=== PATIENT | male | born 1950 | race Caucasian/White ===

== ENCOUNTER 2019-09-30 06:12 | Day surgery (SDC) | payer MEDICARE, OTHER, SELFPAY ==
[2019-09-30] VITALS (9 sets, daily range): BP systolic 106–159; BP diastolic 63–106; PULSE 41–73; RESP 11–92; TEMP 36.1–36.2; O2SAT 20–97; BMI 38.7
--- NOTE | 2019-09-30 | DI.RAD.S_ITS ---
PROCEDURE: XR ABDOMEN MIN 2V INDICATIONS: BILATERAL STENT PLACEMENT TECHNIQUE: 2 views of the abdomen were acquired. COMPARISON: None. FINDINGS: Spot fluoroscopic intraoperative images demonstrating partially visualized bilateral ureteral stents. Dictated by: Karl Harvey M.D. on 09/30/2019 at 9:33 Approved by: Karl Harvey M.D. on 09/30/2019 at 9:34
[2019-09-30] MEDS: LACTATED RINGERS 1,000 ML 42 ML IV (07:23)
--- NOTE | 2019-09-30 07:38 | PM.PREOP ---
Pre-operative Note Interval Note History & Physical reviewed/Exam performed by Physician: Yes Changes to H&P: No H&P completed within 30 days and has changed as indicated here:: There are no changes to the history and physical examination the scanned on file.
[2019-09-30] MEDS: CEFAZOLIN VIAL 3 GM in SODIUM CHLORIDE 0.9% 100 ML 200 ML IV (07:40)
--- NOTE | 2019-09-30 08:08 | SUR.OPER ---
Lithotomy on padded OR bed, head on pillow, arms secured on padded arm boards at <90 degrees abduction. Legs secured in padded yellow fins stirrups.
--- NOTE | 2019-09-30 08:30 | SUR.OPER ---
See Laser tech invoice for fiber size and laser settings/duration record
--- NOTE | 2019-09-30 09:23 | PM.OP.1 ---
Operative Date/Time/Diagnoses Date of procedure: 09/30/19 Time of procedure: 09:23 Pre-op diagnosis: 1. Bilateral obstructing distal ureteral calculi. 2. Bilateral renal colic. 3. Recurring urinary tract infection. Post-op diagnosis: same Procedure & Clinicians Procedure: 1. Cystoscopy and left ureteroscopic laser lithotripsy. 2. Cystoscopy and placement bilateral ureteral stents (6 [place] by 28 cm on left. Five [place] by 28 cm on right.). Same procedure as scheduled: Yes Indications: 1. Obstructing bilateral distal ureteral calculi. 2. Bilateral renal colic. 3. Recurring urinary tract infections. Surgeon: Parveen Plummer Click Yes if Unassisted: Yes Anesthesia Type: General Operative Notes Findings: Urethra-normal. External sphincter coapted. The prostate 5+ cm length with moderately obstructing lateral lobes and markedly elevated median lobe and market intravesical protrusion of median lobe. Bladder-1 to 2+ trabeculation normal orifices bilaterally there is a shallow wide-mouth right Hutch diverticulum. There are multiple areas of cystitis cystica. There is marked good intravesical protrusion of prostate median lobe. A Cristian morphology calculus was encountered in the left distal ureter and was subsequently fragmented using the laser Lithotripter without incident. Closure Type: not applicable Specimen(s): none sent Applied: other (1. 6 x 28 cm left ureteral stent. 2. 5 [place] by 28 cm right ureteral stent. ) Estimated Blood Loss (mL): 0 Blood products transfused: none Tourniquet time (min): 0 Procedure in detail: The patient was positioned supine and was administered general anesthesia. He was then repositioned in semi lithotomy in the lower abdomen genitalia and groin were prepped and draped in sterile fashion. The 22 [place] panendoscope was then passed into the lower urinary tract with the findings as described above. A 0.35 guidewire was then advanced into the left collecting system under direct and fluoroscopic guidance. A 4 cm 15 [place] balloon dilator was then advanced over the guidewire and was positioned across the left ureterovesical junction. The balloon was then inflated to 18 atmospheres and held in position for 5 minutes. The balloon was then deflated and backloaded off the guidewire. The avila endoscope was backloaded off the guidewire. The semi-rigid ureteroscope was then introduced in the lower urinary tract and into the left distal ureter with the findings as described above. A 273 micron laser fiber was selected. All operating room personnel and patient were fitted with laser safety eyewear. Lithotripsy was commenced with excellent eventual fragmentation of the calculus. The ureteral scope was then removed and the panendoscope was front loaded on the wire. A 6 [place] by 28 cm double-J ureteral stent was then selected. The stent was advanced over the guidewire under direct and fluoroscopic guidance. No retrieval line was left attached. Next the the same guidewire was utilized to access the right collecting system again under direct fluoroscopic guidance a 5 [place] by 28 cm double-J ureteral stent was then selected this was advanced over the guidewire again used under under direct and fluoroscopic guidance. No retrieval line was left attached. The bladder was then drained completely and all instrumentation was removed. The patient was then repositioned into a supine was awakened transferred to a gurney and transported to recovery in stable condition. Complications: none Post-operative Condition: stable Disposition: PACU Plan for aftercare: Discharge home.
== END 2019-09-30 09:50 | disposition home or self-care (01) ==
PROVIDERS: PCP Internal Medicine; Referring Provider Specialist; Visit Provider Specialist
PROC: (CPT 52356; principal; 2019-09-30 07:45)
DX: N20.1 Calculus of ureter (principal); N20.0 Calculus of kidney; N23 Unspecified renal colic; N30.80 Other cystitis without hematuria; N40.0 Benign prostatic hyperplasia without lower urinary tract symptoms
CPT/HCPCS: 52356; 74019; 76000; J0690; J2250; J2405; J2704; J3010

== ENCOUNTER 2019-10-14 06:31 | Day surgery (SDC) | payer MEDICARE, OTHER, SELFPAY ==
[2019-10-14] VITALS (8 sets, daily range): BP systolic 123–154; BP diastolic 73–87; PULSE 60–75; RESP 12–17; TEMP 36–37.2; O2SAT 95–99; BMI 36.9
[2019-10-14] MEDS: LACTATED RINGERS 1,000 ML 42 ML IV ×2 (07:00→09:54)
--- NOTE | 2019-10-14 07:12 | PM.PREOP ---
Pre-operative Note Interval Note History & Physical reviewed/Exam performed by Physician: Yes Changes to H&P: No H&P completed within 30 days and has changed as indicated here:: There are no changes to the history and physical examination scanned into file.
[2019-10-14] MEDS: CEFAZOLIN VIAL 3 GM in SODIUM CHLORIDE 0.9% 100 ML 200 ML IV (08:01)
--- NOTE | 2019-10-14 08:18 | SUR.OPER ---
Lithotomy on padded OR bed, head on pillow, arms secured on padded arm boards at <90 degrees abduction. Legs secured in padded yellow fins stirrups.
--- NOTE | 2019-10-14 08:35 | SUR.OPER ---
For Laser lithotripsy power settings, duration, and laser fiber type info.,refer to Holmium laser treatment record.
--- NOTE | 2019-10-14 09:03 | P.OP_ITS ---
Operative Date/Time/Diagnoses Date of procedure: 10/14/19 Time of procedure: 09:04 Pre-op diagnosis: 1. Obstructing 7 mm right distal ureteral calculus. 2. Bilateral retained ureteral stents. Post-op diagnosis: same Procedure & Clinicians Procedure: 1. Cystoscopy and left ureteral stent removal. 2. Cystoscopy and right ureteral stent removal. 3. Cystoscopy and right ureteroscopic laser lithotripsy. Same procedure as scheduled: No (Elected not to replace right ureteral stent post laser lithotripsy.) Indications: 1. Obstructing 7 mm right distal ureteral calculus. 2. Bilateral retained ureteral stents. Surgeon: Parveen Plummer Click Yes if Unassisted: Yes Anesthesia Type: General Operative Notes Findings: 1. Urethra-normal. 2. External sphincter-coapted. 3. Prostate-5 cm plus length with obstructing trilobar hyperplasia and large protruding intravesical median lobe. 4. Bladder-2+ trabeculation ureteral stents occupying both ureteral orifices. 5. A spiculated calculus was encountered in the expected location in the distal right ureter. Closure Type: not applicable Specimen(s): none sent Estimated Blood Loss (mL): 0 Blood products transfused: none Procedure in detail: The patient was positioned in supine and was administered general anesthesia. He was then repositioned in semi lithotomy and the lower abdomen genitalia and groin were prepped and draped in sterile fashion. The 22 [place] panendoscope was then passed in the lower urinary tract with the findings as described above. A foreign body grasper was then utilized to remove the left ureteral stent in its entirety. There right ureteral stent was then removed in the same manner. A 0.35 guidewire was then advanced into the right ureteral orifice and into the right collecting system under direct and fluoroscopic guidance. The avila endoscope was then backloaded off the wire. The semi rigid ureteral scope was then introduced and lower urinary tract and advanced proximally it was then advanced into the right ureteral orifice and several cm above the right ureteral vesicle junction the stone was encountered. The 200 73 micron laser fiber was selected and all operating room personnel and patient were fitted with laser safety eyewear. Laser lithotripsy was then commenced with excellent subsequent fragmentation of the calculus the vast majority of the fragments were irrigated free of the ureter there was minimal residual trauma of the ureter and it was elected not to leave a ureteral stent. Bladder contents with drained completely. The bladder was refilled once again and again the bladder contents were drained. The avila endoscope was removed a final time. The patient was then repositioned in supine was awakened and transferred to a gurney in stable condition. Complications: none Post-operative Condition: stable Disposition: PACU
--- NOTE | 2019-10-14 09:04 | SUR.OPER ---
Order placed for Right ureteral stone for stone anaylsis, specimen collected and taken to lab by Braden LAINEZ
[2019-10-28 12:00] LABS: Ca oxalate dihydrate 60; Ca oxalate monohydr 35
== END 2019-10-14 10:15 | disposition home or self-care (01) ==
PROVIDERS: PCP Internal Medicine; Referring Provider Specialist; Visit Provider Specialist
PROC: (CPT 52356; principal; 2019-10-14 07:45)
DX: N20.1 Calculus of ureter (principal); N52.9 Male erectile dysfunction, unspecified; N40.1 Benign prostatic hyperplasia with lower urinary tract symptoms
CPT/HCPCS: 52356; 76000; 82365; J0690; J2250; J2405; J2704; J3010

== ENCOUNTER → 2020-08-08 10:28 | Outpatient (CLI) | payer MEDICARE, OTHER, SELFPAY | PROVIDERS: PCP Internal Medicine; Visit Provider Specialist | DX: N39.0 Urinary tract infection, site not specified (principal); N40.1 Benign prostatic hyperplasia with lower urinary tract symptoms; N13.8 Other obstructive and reflux uropathy; Z87.442 Personal history of urinary calculi; Z87.440 Personal history of urinary (tract) infections | CPT/HCPCS: 81002; 87077; 87086; 87147; 87186; 99214 ==

== ENCOUNTER → 2021-10-02 14:18 | Outpatient (CLI) | payer MEDICARE, OTHER, SELFPAY | PROVIDERS: PCP Internal Medicine; Visit Provider Specialist | DX: R30.0 Dysuria (principal); N39.0 Urinary tract infection, site not specified; R31.9 Hematuria, unspecified; N40.1 Benign prostatic hyperplasia with lower urinary tract symptoms; N13.8 Other obstructive and reflux uropathy; N20.0 Calculus of kidney; Z87.440 Personal history of urinary (tract) infections | CPT/HCPCS: 51798; 81002; 87077; 87086; 87186; 99215 ==

== ENCOUNTER → 2021-10-03 14:24 | Outpatient (CLI) | payer MEDICARE, OTHER, SELFPAY ==
--- NOTE | 2021-10-03 14:45 | DIET.CONS ---
Dietary Consultation Note Assessment: 71y M attending RD visit for kidney stone nutrition therapy. Kidney stone Hx: Pt has 2 stones in L kidney and one in right currently, all 4mm or less. has been having kidney stones for 20y, one every year or so has had two lithotripsies. Pt stone analysis shows calcium oxalate stones, litholink testing indicate low urine pH, high urine calcium, high urine oxalate. Pt getting frequent bladder infections and frequently on Abx, is taking probiotics with Abx but was told to take high levels Vitamin C with probiotics, pt consuming 3g supplemental vitamin C daily. To reduce risk of stone formation pt tries to avoid certain foods- blueberries, raspberries, spinach, asparagus, nuts and seeds, potato chips, rarely fries and drinks a lot of water, prefers cold water- really good fluid consumption, always overfills 24h urine test. Plays golf daily in [place] every winter, stays 3 weeks. Does water aerobics every morning then goes in hot tub x7y, during covid walked daily instead. 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 Usual Day: B: skips much of the time- oatmeal with banana and honey or eggs with ragland c one or two cups coffee goes to water aerobics L: sandwich-ww bread, cheese, turkey or ham, chipotle carrizales sometimes lettuce, canned soup- chicken tortilla or [place], wrap with same ingredients, or meat with cheese afternoon snack: apple D: [employer] dinners- chicken taco salad, meatloaf c veggies, with vegetable or salad half time Sn: chocolate ice cream bar usually only has etoh on weekends RD Impression: Pt has diet high in sodium containing foods (canned soup, deli meat, bread, cheese), not so much added salt. Pt is below goal of F/V intake, however pt has barrier of following high oxalate food restriction list which is further limiting F/V intake and contributing to low urine pH. Pt taking excessive Vitamin C supplement which turns to oxalate. Pt intake calcium containing foods is low (cheese c lunch only, though pt has no problem eating dairy). Interventions: 1. To address high oxalate levels in urine: a) pt will strictly limit intake spinach, beets, nuts/seeds, rhubarb, potato chips, potato fries b) pt will consume 300mg calcium with each meal to bind free oxalate in GI tract before reaching bloodstream. Provided handout on calcium content of foods, pt will drink 6oz milk c breakfast, cheese c lunch, and other calcium food of choice at dinner. c) Pt will continue probiotic daily to increase oxalate consuming bacteria in gut. d) pt will cut supplemental vitamin c down from 3g daily to 1g. 2. To address high urine calcium levels and low urine pH: a) pt will increase consumption F/V with meals and as snacks b) pt will consume 300mg calcium from food with each meal. EER: limit sodium to 800mg each meal, consume 300mg calcium each meal, limit supplemental Vit C to no more than 1g/d. Monitoring/Evaluations: f/u prn depending on further stone formation, future litholink results. Electronically Signed by: Ronna Norris 10/03/21 14:45 Clinical Dietitian [address] [id number]
== END ==
PROVIDERS: PCP Internal Medicine; Referring Provider Specialist; Visit Provider Specialist
DX: N20.0 Calculus of kidney (principal)
CPT/HCPCS: 97802

== ENCOUNTER → 2021-10-22 13:07 | Outpatient (CLI) | payer MEDICARE, OTHER, SELFPAY ==
[2021-10-22 13:21] LABS: Appearance Urine UA CLEAR; Bilirubin Urine UA NEGATIVE (NEGATIVE); Color Urine UA YELLOW; Glucose Urine UA NEGATIVE (Negative); Ketones Urine UA NEGATIVE (NEGATIVE); Leukocyte Esterase Urine UA TRACE (NEGATIVE); Nitrite Urine UA NEGATIVE (Negative); Occult Blood Urine UA NEGATIVE (Negative); Protein Urine UA NEGATIVE (Negative); Urobilinogen Urine UA 0.2 E.U./dL (0.2)
[2021-10-22 13:24] LABS: Bacteria Urine None Seen; Culture Indicated Urine Cult Not Indicated; RBC Urine None Seen (0-5/HPF); Urine Comments Microscopic Normal; WBC Urine None Seen (0-5/HPF)
== END ==
PROVIDERS: PCP Internal Medicine; Referring Provider Specialist; Visit Provider Specialist
DX: R30.0 Dysuria (principal)
CPT/HCPCS: 81001

== ENCOUNTER → 2023-07-02 13:17 | Outpatient (CLI) | payer MEDICARE, OTHER, SELFPAY ==
[2023-07-02 15:33] LABS: Prostate Specific Antigen 2.22 ng/mL (0.10-4.00)
== END ==
PROVIDERS: PCP Internal Medicine; Referring Provider Specialist; Visit Provider Specialist
DX: N40.1 Benign prostatic hyperplasia with lower urinary tract symptoms (principal); N13.8 Other obstructive and reflux uropathy; N20.0 Calculus of kidney; Z87.440 Personal history of urinary (tract) infections; Z87.442 Personal history of urinary calculi
CPT/HCPCS: 36415; 51798; 81002; 84153; 99214